=== PATIENT | female | born 1985 | race Caucasian/White ===

== ENCOUNTER → 2016-09-14 | Day surgery (SDC) | payer OTHER ==
[~2016-09-14] VITALS: Ht 162.6 cm; Wt 81.6 kg
[~2016-09-14] MED LIST: LEVOTHYROXINE125 MCG PO; PROAIR HFA8.5 GM INH; SPIRONOLACTONE50 M1 PO; ZYRTEC10 M3 PO
[2016-09-14 12:55] LABS: ABSOLUTE BASOPHIL COUNT 0 /CUMM (0.0-0.2); ABSOLUTE EOSINOPHIL COUNT 0.1 /CUMM (0.0-0.7); ABSOLUTE GRANULOCYTE CT 3.3 /CUMM (1.4-6.5); ABSOLUTE MONOCYTE COUNT 0.5 /CUMM (0.10-0.60); BASOPHIL % 0.6 % (0.0-2.0); EOSINOPHIL % 1.9 % (0-5); GRANULOCYTE % 55.9 % (42.2-75.2); HEMATOCRIT 36.7 % (37-47); MEAN CORPUSCULAR HGB 26.3 PG (27.0-31.0); MEAN CORPUSCULAR HGB CONC 33.1 G/DL (33.0-37.0); MEAN CORPUSCULAR VOLUME 79.3 FL (81.0-99.0); MEAN PLATELET VOLUME 9.5 FL (7.4-10.4); PLATELET COUNT 236 /CUMM (130-400); RBC DISTRIBUTION WIDTH 14.4 % (11.5-14.5); RED BLOOD CELL CT 4.62 /CUMM (4.20-5.40); WHITE BLOOD CELL COUNT 5.9 /CUMM (4.8-10.8)
[2016-09-14 13:04] LABS: PTT 34 SEC (25-37)
--- NOTE | 2016-09-19 19:16 | Operative Report ---
Operative/Inv Procedure Report Surgery Date: 09/14/16 Name of Procedure: D&C hysteroscopy Pre-Operative Diagnosis: Metromenorrhagia Post-Operative Diagnosis: Same Estimated Blood Loss: scant Surgeon/Automatic Presser: MICAH HENLEY MD Anesthesia: moderate sedation Operative/Procedure Note Note: Patient was taken the operating room placed on position after adequate anesthesia patient placed in dorsolithotomy position the vagina prepped draped so fashion bladder catheterized examination under anesthesia performed a single- tooth tenaculum placed on the Intralipid cervix gentle downward traction patient tolerated that well at this point surgeon is dilated 29 Hegar to allow for the insertion of the sharp curet sharp the hysteroscope was inserted and direct visualization using gas hysteroscope was removed sharp curette Kraig was used to get a sample from the uterine lining a Kevorkian was used to obtain endocervical sample patient tolerated this well at the end the case the counts was removed from the vagina patient was returned spine position to awake from anesthesia and transferred recovery room awake alert counts correct thank you Findings: Normal size uterus no adnexal masses normal lining cervix normal
== END ==
LOC: STS 03:15
PROVIDERS: Specialist
DX: N92.1 Excessive and frequent menstruation with irregular cycle (principal); N72 Inflammatory disease of cervix uteri; E28.2 Polycystic ovarian syndrome; Z85.850 Personal history of malignant neoplasm of thyroid; Z98.84 Bariatric surgery status
CPT/HCPCS: 36415; 81003; 88305; J2250